=== PATIENT | female | born 1945 | race Caucasian/White ===

== ENCOUNTER 2017-10-20 08:19 | Day surgery (SDC) | payer MEDICARE ==
[2017-10-20] MEDS ORDERED: DEXAMETHASONE SODIUM PHOSPHATE 10 MG/ML VIAL IJ ONE (09:31)
[2017-10-20] MEDS ORDERED: LIDOCAINE HCL/PF 5 ML VIAL IJ ONE (09:32)
[2017-10-20] MEDS ORDERED: IOPAMIDOL 20 ML VIAL IJ ONE (09:32)
--- NOTE | 2017-10-20 09:32 | OR ---
Anesthesia Pre Procedure Eval Date of Service: 10/20/17 Pre Procedure Evaluation: Last Vital Signs Temp 36.3 C L 10/20/17 08:35 Pulse 67 10/20/17 08:35 Resp 16 10/20/17 08:35 BP 163/90 10/20/17 08:35 Pulse Ox 95 10/20/17 08:35 Anesthesia Pre Procedure Evaluation DATE: 10/20/2017 TIME: 9 a.m. INDICATIONS: Low back and left radicular pain PAST MEDICAL HISTORY: Ms. Rosales has a long history of low back and radicular pain. Initially she had low back and right radicular pain 20 years ago which was relieved with an epidural injection at that time. She has had no recurrent right sided radiculopathy or radicular pain however her low back and right radicular pain has been ongoing for over 10 years. She is not a surgical candidate and has failed therapy treatments. She has also had a rhizotomy with no success. She presents this morning after an 11 month onset of increased back and radicular pain which she describes as generally in the center of the back occasionally radiating bilaterally in the back normally radiating to the right hip and anterior thigh to the level of the knee. The procedure and risks were explained. History of GERD: All History of smoking:No History of sleep apnea:No EXAM: Heart S1-S2 regular; lungs clear bilaterally ASSESSMENT OF MEDICAL STATUS: Appropriate candidate for epidural injection PLANNED PROCEDURE: Fluoroscopy guided epidural steroid injection lumbar area. Home Medications: HOME MEDICATIONS Aspirin [Aspirin Enteric Coated] 81 mg PO DAILY 10/19/17 [Last Taken Unknown] Atorvastatin Calcium [Lipitor] 20 mg PO HS 10/19/17 [Last Taken Unknown] Escitalopram Oxalate [Lexapro] 10 mg PO DAILY 10/19/17 [Last Taken Unknown] Estradiol [Estrace] 0.5 mg PO 2XW 10/19/17 [Last Taken Unknown] Fluticasone Propionate [Flonase Allergy Relief] 2 spray NS DAILY 10/19/17 [Last Taken Unknown] Losartan/Hydrochlorothiazide [Losartan-Hctz 100-25 mg Tab] 1 each PO DAILY 10/19 [Last Taken Unknown] Metoprolol Tartrate [Lopressor] 100 mg PO BID MDD TAKES HALF OF 200 MG TAB BID 10/19/17 [Last Taken Unknown] Omeprazole [Prilosec] 20 mg PO DAILY 10/19/17 [Last Taken Unknown] Potassium Chloride [Klor-Con 10] 10 meq PO BIDWM 10/19/17 [Last Taken Unknown] oxyCODONE HCL/ACETAMINOPHEN [Percocet 10-325 mg Tablet] 1 each PO Q6H PRN [Last Taken Unknown]
[2017-10-20 10:13] VITALS: BP 141/58
--- NOTE | 2017-10-20 12:26 | OR ---
Anesthesia Procedure Note - Anesthesia Procedure Note Date of Service: 10/20/17 Narrative: Vital Signs - Last Taken Temp 36.3 C L 10/20/17 09:40 Pulse 64 10/20/17 10:12 Resp 16 10/20/17 10:12 BP 141/58 10/20/17 10:12 Pulse Ox 95 10/20/17 10:12 O2 Oxygen Delivery Method Room Air 10/20/17 12:22 ANESTHESIA PROCEDURE NOTE Date of Procedure: 03/22/2018 Time of procedure: 9:15 AM. Performed by: Khurram Lagos CRNA, FINANCIAL SUPERVISOR, MSN Construction Foreman: Mariah Roa RN. Preprocedure diagnosis: Severe spinal stenosis with left radicular pain. Post procedure diagnosis: Same. Procedure: Epidural Steroid Injection L3 4. Indications: Left radicular pain. Findings: See below. Details of the procedure: After the MRI report and films were reviewed, the patient was interviewed where risks and the procedure were explained. The patient was then brought to 3 and was placed in the prone position. The back was prepped with DuraPrep and draped in a sterile fashion. The lumbar area was identified under fluoroscopy and the L3 4 space was localized with 1% lidocaine solution. Severe scoliosis. The identification of space was quite difficult everything most likely area of injection was identified as the approximate L3 4 level. The epidural space was identified using loss of resistance technique using a #20-gauge Touhy needle. 1 mL of Isovue was injected while the C-arm was positioned in the lateral orientation. The C-arm was then readjusted to an AP view and Isovue 200 1 milliliters was injected demonstrating a spread at the affected area. Dexamethasone 10mg and lidocaine 1% 5 mL was injected, stylette was replaced and the epidural needle removed. A Band-Aid was then applied to the injection site, patient was placed in a left lateral position for 5 minutes then returned to ASU with good relief of pain, from a to/10 to 0/10. EBL: None. Energy: 13.7 Seconds, 3.07 mGy Fluids: N/A. Specimen: N/A. Post procedure condition: The patient tolerated the procedure well. No complications were noted. Thank you for this consultation. Khurram Lagos CRNA, MSN, FINANCIAL SUPERVISOR
== END 2017-10-20 08:20 | disposition home or self-care (01) ==
LOC: AMB 08:19
PROVIDERS: ATTEND Internal Medicine
PROC: 3E0R3BZ Introduction of Anesthetic Agent into Spinal Canal, Percutaneous Approach (ICD-10-PCS; principal; 2017-10-20)
PROC: 3E0R33Z Introduction of Anti-inflammatory into Spinal Canal, Percutaneous Approach (ICD-10-PCS; 2017-10-20)
DX: M48.061 Spinal stenosis, lumbar region without neurogenic claudication

== ENCOUNTER 2018-10-31 08:36 | Observation (INO) ==
[2018-10-31] MEDS ORDERED: NORMAL SALINE 1,000 ML IV ONE (09:04)
[2018-10-31] MEDS ORDERED: ACETAMINOPHEN 500 MG TABLET PO ONE (09:04)
--- NOTE | 2018-10-31 09:09 | ERNOTE ---
Medical Problem HPI - Narrative Date of Service: 10/31/18 - General Chief Complaint: Fever Time Seen by Provider: 10/31/18 08:56 Source: patient, family - Immun/Allergies/Home Medications Immunizations: IMMUNIZATION HX Immunizations Up to Date Yes History of Influenza Vaccine Yes Hx Pneumococcal Vaccination Yes Allergies/Adverse Reactions: Allergies amoxicillin Allergy (Mild, Verified 10/19/18 10:57) Hives NSAIDS (Non-Steroidal Anti-Inflamma Adverse Reaction (Verified 10/19/18 10:57) Home Medications: HOME MEDICATIONS Aspirin [Aspirin Enteric Coated] 81 mg PO DAILY 10/19/17 [Last Taken Unknown] fluticasone 50 mcg/actuation nasal spray,suspension 2 spray AMELIA DAILY #54.6 g 03/22/18 [Last Taken Unknown] omeprazole 20 mg tablet,delayed release 20 mg PO DAILY #90 tab 03/22/18 [Last Taken Unknown] oxycodone-acetaminophen 10 mg-325 mg tablet 1 tab PO Q6H PRN #120 tab 06/16/18 [Last Taken Unknown] atorvastatin 20 mg tablet 20 mg PO HS #90 tab 08/16/18 [Last Taken Unknown] ciprofloxacin 250 mg tablet 250 mg PO BID #20 tab 09/30/18 [Last Taken Unknown] escitalopram 10 mg tablet 10 mg PO DAILY #90 tab 10/06/18 [Last Taken Unknown] metoprolol succinate ER 100 mg tablet,extended release 24 hr 100 mg PO BID #180 tab 10/27/18 [Last Taken Unknown] - History of Present History Narrative: This is a 72-year-old female who comes to the emergency department with a fever to 102 this morning. The patient has a recent diagnosis of what sounds like bladder cancer with ureteral obstruction and hydro-bilaterally. She had nephrostomy tubes placed a little over a week ago. I actually saw her a few days ago when she had a large pulmonary embolism for which she was actually transferred to [facility]. She has been doing okay and went home. Thursday night she started feeling poorly. She says that the nephrostomy tube at one side stopped draining. She says since then she has been feeling crappy. With the fever this morning she called her doctors at [place] and they told her to come to the ER. Some nausea but no vomiting. No diarrhea. No change in the urine. No coughing sore throat runny nose. No stiff neck. No significant new abdominal pain. No other complaints, she just has generalized malaise and achiness. She did not take Tylenol as she did not know how much she can take as she is also taking Percocet. She cannot take NSAIDs Review of Systems - Review of Systems Constitutional: Present: recent illness, fever, chills, fatigue, malaise EYE: Present: no symptoms reported ENT: Present: no symptoms reported Respiratory: Present: no symptoms reported Cardiology: Present: no symptoms reported Gastrointestinal/Abdominal: Present: nausea. Absent: vomiting, diarrhea Genitourinary: Present: See HPI Musculoskeletal: Present: other Skin: Present: no symptoms reported Neurological: Present: no symptoms reported - Achy pain all over Endocrine: Present: no symptoms reported Hematologic/Lymphatic: Present: no symptoms reported Psych: Present: no symptoms reported All Other Systems: All systems neg except as marked Medical History (Last Reviewed 10/19/18 @ 11:00 by Candace Méndez) Scoliosis (Chronic) Onset Date: ~04/27/17 Lumbar spondylolysis (Chronic) Onset Date: ~04/27/17 [facility] Hypertension (Chronic) Onset Date: Unknown well controlled Hyperlipemia (Chronic) Onset Date: Unknown DDD (degenerative disc disease), lumbar (Chronic) Onset Date: ~04/27/17 [facility]- facet arthropathy CHF (congestive heart failure) (Chronic) Onset Date: Unknown compensated Cardiomyopathy (Resolved) Onset Date: Unknown CAD (coronary artery disease) (Chronic) Onset Date: Unknown Stable angina (Chronic) Onset Date: Unknown Bladder cancer Onset Date: ~10/04/18 bladder tumor 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 Mckeon Surgical History: Surgical History (Last Reviewed 10/19/18 @ 11:00 by Candace Méndez) Cataract Onset Date: ~05/2013 H/O angioplasty Onset Date: ~04/1999 CFX 1999, [place] EF60% History of cholecystectomy Onset Date: ~04/2012 History of left hip replacement Onset Date: ~01/2009 S/P coronary artery stent placement Onset Date: Unknown Status post epidural steroid injection Onset Date: Unknown rhizotomy Onset Date: ~06/2015 of lumbar facet joint Family History: Family History (Last Reviewed 10/19/18 @ 11:00 by Candace Méndez) Father Hypertension Myocardial infarction Mother Myocardial infarction Social History: Preferred Language Chinese Smoking Status Former smoker Have you smoked in the past 12 Yes months Smoking packs per day 0.5 Alcohol Use none Drug Use none (Last Updated 10/19/18 @ 11:25 by Jin Espinoza MD) No Social History Section defined Physical Exam - Physical Exam General Appearance: Present: wd/wn, alert, no apparent distress Head Exam: Present: normal inspection, no evidence of injury Eye Exam: Normal inspection: bilateral Ears, Nose, Throat: Present: normal ENT inspection, normal pharynx Neck: Present: normal inspection, nontender Respiratory: Present: no respiratory distress, normal breath sounds, chest nontender, lungs clear Cardiovascular/Chest: Present: regular rate, rhythm, no murmur Gastrointestinal/Abdominal: Present: normal bowel sounds, nontender, nondistended, soft Back Exam: Present: other - Patient has sites of bilateral nephrostomy tubes. There is no surrounding cellulitis or erythema. Patient has no significant CVA tenderness. No rashes are noted on the back. No vertebral tenderness Extremity Exam: Present: normal inspection, non-tender, normal range of motion Neurological Exam: Present: alert, oriented, normal mood/affect, no motor/sensory deficits Skin Exam: Present: normal color, warm/dry Lymphatic Exam: Present: no adenopathy Progress - Results and Orders Patient's Lab Results:: I have reviewed the patient's lab results. - Vital Signs Patient's Vital Signs:: I have reviewed the patient's vital signs. Vital Signs: Vital Signs 10/31/18 08:57 Temperature 36.8 C Pulse Rate 92 Respiratory Rate 18 Blood Pressure 162/73 H O2 Sat by Pulse Oximetry 92 L - X-Ray X-Ray #1 X-Ray: chest Interpretation: Interp. by me X-ray Comments: No acute disease cardiopulmonary was - Progress/Reassessment Chief Complaint: Fever Progress:: Improved Progress Note-Subjective: 10/31/18 11:12 Patient feels better now after having the Tylenol. I guess the first urine came from the urostomy nephrostomy tube. The other side is actually not draining so she is having passage of urine from the urethra. Were going to obtain a sample from there. She had a fever and she has this manipulation of her kidney so I have to assume that she has kidney infection. Were going to admit her to the hospital. Give IV Rocephin. We need to get her out Thursday to get up to her appointment. I will speak with Dr. Barbosa.? Adjuvant Departure Clinical Impression: Urinary tract infection - Departure Disposition: Still a patient Condition: Fair Referrals: Jin Espinoza MD [Primary Care Provider] -
[2018-10-31 09:32] LABS: Hematocrit 36.1 % (37.0-47.0); Hemoglobin 10.9 gm/dL (12.5-16.0); Mean Cell Volume 84.1 fl (78-100); Mean Corpuscular Hemoglobin 25.4 pg (27-31); Mean Corpuscular Hgb Conc 30.2 g/dl (32-36); Mean Platelet Volume 9.4 fl (8-12.5); Neutrophil % 85.6 % (42-75.0); Platelet Count 317 K/mm3 (150-450); Red Blood Count 4.29 M/mm3 (4.2-5.4); Red Cell Distribution Width 15.4 % (11.5-14.0)
[2018-10-31 09:46] LABS: Anion Gap 15.3 mmol/L (6.8-13.8); BUN/Creatinine Ratio 14.1 (9.0-21.6); Bilirubin, Total 0.7 mg/dL (0.0-1.1); Ca. Corrected For Albumin 9.7 mg/dL (8.4-10.2); Calcium * 9.2 mg/dL (7.9-10.9); Carbon Dioxide 27.2 mmol/L (24-32.6); Potassium 3.5 mmol/L (3.4-4.6); Total Protein 7.3 gm/dL (6.2-8.2)
[2018-10-31 09:57] LABS: Urine Bilirubin Negative (NEGATIVE); Urine Blood 50 /ul (NEGATIVE); Urine Ketone Negative (NEGATIVE); Urine Nitrite Negative (NEGATIVE); Urine Protein 100 mg/dL (NEGATIVE); Urine Urobilinogen Normal (NORMAL)
[2018-10-31 10:03] LABS: Urine Appearance Slightly Cloudy (CLEAR); Urine Color Yellow; Urine WBC 0-5 /hpf (0-5)
[2018-10-31 10:04] LABS: Urine Bacteria TRACE; Urine Mucus Few - 1+
[2018-10-31 10:05] LABS: Urine Yeast TRACE
[2018-10-31] MEDS ORDERED: FLUCONAZOLE 100 MG TABLET PO ONE (11:10)
[2018-10-31] MEDS ORDERED: cefTRIAXone SODIUM 1,000 MG/100 ML BAG IV ONE (11:10)
[2018-10-31 11:32] LABS: Urine Bilirubin Negative (NEGATIVE); Urine Blood 250 /ul (NEGATIVE); Urine Ketone Negative (NEGATIVE); Urine Nitrite Negative (NEGATIVE); Urine Protein 100 mg/dL (NEGATIVE); Urine Urobilinogen Normal (NORMAL)
[2018-10-31 11:41] LABS: Urine Appearance Cloudy (CLEAR); Urine Bacteria 2+; Urine Color Yellow; Urine RBC >50 /hpf (0-5); Urine WBC >50 /hpf (0-5); Urine Yeast Few - 1+
[2018-10-31] MEDS ORDERED: ENOXAPARIN SODIUM 40 MG/0.4 ML SYRG SC SCH (13:15)
--- NOTE | 2018-10-31 13:42 | HP ---
Chief Complaint - Chief Complaint Date of Service: 10/31/18 Time of Service: 13:00 Chief Complaint: Fever, left flank pain, malodorous urine, weakness. History of Present Illness: Stella Rosales is a 72-year-old female who presented to the emergency room with fever chills and weakness. She was recently diagnosed with bladder cancer and has [address] The right ureteral stent is draining urine into the collection bag fine. The left ureteral stent is occluded and the urine from the left kidney is working around the stent and coming out through the urethra. The bladder cancer has caused a hydroureter or hydronephrosis bilaterally. Because the left stent is not functioning the urine has become stagnant and infected and she has developed a left pyelonephritis. She had pain in the left flank this morning earlier but that is gone now. She is taking Percocet 4 times a day for pain management. In the emergency room she was given IV fluids, IV Rocephin 1 g IV piggyback, and she is now afebrile and feeling much better. She states she is actually hungry which is the first time in quite a while that she wanted to eat. Also she recently had a saddle pulmonary embolus that was life-threatening. The only anticoagulant medicine I'm seeing however is aspirin. Because of her bladder tumor and recent pulmonary emboli probably she is at high risk for DVT. Medical History (Last Reviewed 10/31/18 @ 13:34 by Lisa Ram RN) Scoliosis (Chronic) Onset Date: ~04/27/17 Lumbar spondylolysis (Chronic) Onset Date: ~04/27/17 [facility] Hypertension (Chronic) Onset Date: Unknown well controlled Hyperlipemia (Chronic) Onset Date: Unknown DDD (degenerative disc disease), lumbar (Chronic) Onset Date: ~04/27/17 [facility]- facet arthropathy CHF (congestive heart failure) (Chronic) Onset Date: Unknown compensated Cardiomyopathy (Resolved) Onset Date: Unknown CAD (coronary artery disease) (Chronic) Onset Date: Unknown Stable angina (Chronic) Onset Date: Unknown Bladder cancer Onset Date: ~10/04/18 bladder tumor 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 Mckeon Surgical History: Surgical History (Last Reviewed 10/31/18 @ 13:34 by Lisa Ram RN) Cataract Onset Date: ~05/2013 H/O angioplasty Onset Date: ~04/1999 CFX 1998, [place] EF60% History of cholecystectomy Onset Date: ~04/2012 History of left hip replacement Onset Date: ~01/2009 S/P coronary artery stent placement Onset Date: Unknown Status post epidural steroid injection Onset Date: Unknown rhizotomy Onset Date: ~06/2015 of lumbar facet joint Family History: Family History (Last Reviewed 10/31/18 @ 13:34 by Lisa Ram RN) Father Hypertension Myocardial infarction Mother Myocardial infarction Social History: Preferred Language Cymro Smoking Status Former smoker Have you smoked in the past 12 Yes months Smoking packs per day 0.5 Alcohol Use none Drug Use none (Last Updated 10/19/18 @ 11:25 by Jin Espinoza MD) No Social History Section defined Review Of Systems (GEN) - Review of Systems Generalized/Overall Review: Present: Weakness, Chills, Fever, Malaise EENTM: Present: No Symptoms Reported Respiratory: Present: No Symptoms Reported Cardiac: Present: No Symptoms Reported Abdominal: Present: No Symptoms Reported Genitourinary: Present: Dribbling, Incontinent, Other - See discussion in the HPI Musculoskeletal: Present: No Symptoms Reported Neurological: Present: No Symptoms Reported Skin: Present: No Symptoms Reported Endocrine: Present: No Symptoms Reported Misc: All systems neg except as marked Immunizations: IMMUNIZATION HX Immunizations Up to Date Yes History of Influenza Vaccine Yes Hx Pneumococcal Vaccination Yes Allergies/Adverse Reactions: Allergies Allergy/AdvReac Type Severity Reaction Status Date / Time amoxicillin Allergy Mild Hives Verified 10/19/18 10:57 NSAIDS (Non-Steroidal AdvReac Verified 10/19/18 10:57 Anti-Inflamma Home Medications: HOME MEDICATIONS Aspirin [Aspirin Enteric Coated] 81 mg PO DAILY 10/19/17 [Last Taken Unknown] fluticasone 50 mcg/actuation nasal spray,suspension 2 spray AMELIA DAILY #54.6 g 03/22/18 [Last Taken Unknown] omeprazole 20 mg tablet,delayed release 20 mg PO DAILY #90 tab 03/22/18 [Last Taken Unknown] oxycodone-acetaminophen 10 mg-325 mg tablet 1 tab PO Q6H PRN #120 tab 06/16/18 [Last Taken Unknown] atorvastatin 20 mg tablet 20 mg PO HS #90 tab 08/16/18 [Last Taken Unknown] ciprofloxacin 250 mg tablet 250 mg PO BID #20 tab 09/30/18 [Last Taken Unknown] escitalopram 10 mg tablet 10 mg PO DAILY #90 tab 10/06/18 [Last Taken Unknown] metoprolol succinate ER 100 mg tablet,extended release 24 hr 100 mg PO BID #180 tab 10/27/18 [Last Taken Unknown] Exam - Exam Vital Signs: Vital Signs - Last Taken Temp 36.8 C 10/31/18 12:15 Pulse 98 10/31/18 12:15 Resp 16 10/31/18 12:15 BP 148/76 10/31/18 12:15 Pulse Ox 94 10/31/18 12:15 Constitutional: Present: Alert, Oriented x3, Cooperative, Well developed, Well nourished, No distress ENT Exam: Present: normal ENT inspection, hearing grossly normal, pharynx normal, TMs normal Eye Exam: bilateral eye: normal inspection, PERRL, EOMI Neck: Present: non-tender, full range of motion Back Exam: Present: normal inspection, no CVA tenderness, no vertebral tenderness Breasts: Present: Exam deferred Respiratory: Present: chest non-tender, lungs clear, normal breath sounds, no respiratory distress, no accessory muscle use Cardiovascular/Chest: Present: no gallop - Having frequent trigeminal PVCs., tachycardia Peripheral Pulses: carotid (R): 2+, carotid (L): 2+, radial (R): 2+, radial (L): 2+ Abdomen: Present: Normal bowel sounds, soft, nontender, nondistended, no rebound tenderness, no hepatospenomegaly, no masses, suprapubic tenderness, other - Positive Jose Manuel's sign on the left /Rectal: Present: Exam deferred Extremity: Present: normal range of motion Skin Exam: Present: normal color, warm/dry, no cyanosis Lymphatic: Present: no adenopathy Neurologic: Present: vibration engineer II-XII nml as tested, no motor/sensory deficits, alert, normal mood/affect, oriented x 3 Appearance: Present: appropriate appearance, appropriate insight, neat Eye contact: Present: cooperative, good eye contact, normal speech Thoughts: Present: normal thought pattern, no apparent hallucination Diagnostic Studies: Abnormal Lab Results 10/31/18 10/31/18 10/31/18 Range/Units 09:28 09:28 09:53 WBC 14.0 H (4.0-10.5) K/mm3 Hgb 10.9 L (12.5-16.0) gm/dL Hct 36.1 L (37.0-47.0) % MCH 25.4 L (27-31) pg MCHC 30.2 L (32-36) g/dl RDW 15.4 H (11.5-14.0) % Immature Gran % (Auto) 0.50 H (0.001-0.429) % Immature Gran # (Auto) 0.07 H (0.000-0.0310) K/mm3 Neutrophils % 85.6 H (42-75.0) % Lymphocytes % 6.0 L (20-51) % Neutrophils # 12.0 H (1.3-6.0) K/mm3 Lymphocytes # 0.84 L (1.5-3.5) k/mm3 Monocytes # 1.1 H (0.0-1.0) k/mm3 Anion Gap 15.3 H (6.8-13.8) mmol/L Est GFR (Non-Af Amer) 58 L (60-130) mL/min Random Glucose 124 H (70-110) mg/dL Albumin 3.0 L (3.4-5.0) gm/dl Urine pH (5.0-7.0) pH Urine Protein 100 H (NEGATIVE) mg/dL Urine Blood 50 H (NEGATIVE) /ul Prot Sulfosalicylic Acd 3+ H (0) mg/dL Ur Leukocyte Esterase (NEGATIVE) /ul Urine RBC 10-25 H (0-5) /hpf Urine WBC (0-5) /hpf Urine Bacteria (NONE) Urine Mucus Few - 1+ H (NONE) Urine Yeast (NONE) 10/31/18 Range/Units 11:10 WBC (4.0-10.5) K/mm3 Hgb (12.5-16.0) gm/dL Hct (37.0-47.0) % MCH (27-31) pg MCHC (32-36) g/dl RDW (11.5-14.0) % Immature Gran % (Auto) (0.001-0.429) % Immature Gran # (Auto) (0.000-0.0310) K/mm3 Neutrophils % (42-75.0) % Lymphocytes % (20-51) % Neutrophils # (1.3-6.0) K/mm3 Lymphocytes # (1.5-3.5) k/mm3 Monocytes # (0.0-1.0) k/mm3 Anion Gap (6.8-13.8) mmol/L Est GFR (Non-Af Amer) (60-130) mL/min Random Glucose (70-110) mg/dL Albumin (3.4-5.0) gm/dl Urine pH 8.0 H (5.0-7.0) pH Urine Protein 100 H (NEGATIVE) mg/dL Urine Blood 250 H (NEGATIVE) /ul Prot Sulfosalicylic Acd 3+ H (0) mg/dL Ur Leukocyte Esterase 500 H (NEGATIVE) /ul Urine RBC >50 H (0-5) /hpf Urine WBC >50 H (0-5) /hpf Urine Bacteria 2+ H (NONE) Urine Mucus (NONE) Urine Yeast Few - 1+ H (NONE) Laboratory Results WBC 14.0 K/mm3 (4.0-10.5) H 10/31/18 09:28 RBC 4.29 M/mm3 (4.2-5.4) 10/31/18 09:28 Hgb 10.9 gm/dL (12.5-16.0) L 10/31/18 09:28 Hct 36.1 % (37.0-47.0) L 10/31/18 09:28 MCV 84.1 fl (78-100) 10/31/18 09:28 MCH 25.4 pg (27-31) L 10/31/18 09:28 MCHC 30.2 g/dl (32-36) L 10/31/18 09:28 RDW 15.4 % (11.5-14.0) H 10/31/18 09:28 Plt Count 317 K/mm3 (150-450) 10/31/18 09:28 MPV 9.4 fl (8-12.5) 10/31/18 09:28 Immature Gran % (Auto) 0.50 % (0.001-0.429) H 10/31/18 09:28 Immature Gran # (Auto) 0.07 K/mm3 (0.000-0.0310) H 10/31/18 09:28 Neutrophils % 85.6 % (42-75.0) H 10/31/18 09:28 Lymphocytes % 6.0 % (20-51) L 10/31/18 09:28 Monocytes % 7.5 % (0.0-9) 10/31/18 09:28 Eosinophils % 0.1 % (0.0-3.0) 10/31/18 09:28 Basophils % 0.3 % (0.0-1.0) 10/31/18 09:28 Nucleated RBC % 0.0 k/mm3 (0-1) 10/31/18 09:28 Neutrophils # 12.0 K/mm3 (1.3-6.0) H 10/31/18 09:28 Lymphocytes # 0.84 k/mm3 (1.5-3.5) L 10/31/18 09:28 Monocytes # 1.1 k/mm3 (0.0-1.0) H 10/31/18 09:28 Eosinophils # 0.0 k/mm3 (0.0-0.7) 10/31/18 09:28 Absolute Basophils 0.0 k/mm3 (0.0-0.1) 10/31/18 09:28 Sodium 137 mmol/L (132-142) 10/31/18 09:28 Plasma Sodium 137 mmol/L (130-142) 10/31/18 09:28 Potassium 3.5 mmol/L (3.4-4.6) 10/31/18 09:28 Chloride 98 mmol/L (97-106) 10/31/18 09:28 Carbon Dioxide 27.2 mmol/L (24-32.6) 10/31/18 09:28 Anion Gap 15.3 mmol/L (6.8-13.8) H 10/31/18 09:28 BUN 14 mg/dL (3-23) D 10/31/18 09:28 Creatinine 0.99 mg/dL (0.4-1.4) 10/31/18 09:28 Est GFR (Non-Af Amer) 58 mL/min (60-130) L 10/31/18 09:28 BUN/Creatinine Ratio 14.1 (9.0-21.6) 10/31/18 09:28 Random Glucose 124 mg/dL (70-110) H 10/31/18 09:28 Lactic Acid, Venous 1.3 mmol/L (0.4-2.0) 10/31/18 09:28 Calcium 9.2 mg/dL (7.9-10.9) 10/31/18 09:28 Calcium Adj for Albumin 9.7 mg/dL (8.4-10.2) 10/31/18 09:28 Total Bilirubin 0.7 mg/dL (0.0-1.1) 10/31/18 09:28 AST 31 U/L (0-48) 10/31/18 09:28 ALT 25 U/L (19-67) 10/31/18 09:28 Alkaline Phosphatase 142 U/L (50-170) 10/31/18 09:28 Total Protein 7.3 gm/dL (6.2-8.2) 10/31/18 09:28 Albumin 3.0 gm/dl (3.4-5.0) L 10/31/18 09:28 Urine Color Yellow 10/31/18 11:10 Urine Appearance Cloudy (CLEAR) 10/31/18 11:10 Urine pH 8.0 pH (5.0-7.0) H 10/31/18 11:10 Ur Specific [place] 1.020 SP.GR. (1.005-1.010) 10/31/18 11:10 Urine Protein 100 mg/dL (NEGATIVE) H 10/31/18 11:10 Urine Glucose (UA) Negative mg/dL (NEGATIVE) 10/31/18 11:10 Urine Ketones Negative mg/dL (NEGATIVE) 10/31/18 11:10 Urine Blood 250 /ul (NEGATIVE) H 10/31/18 11:10 Urine Nitrate Negative (NEGATIVE) 10/31/18 11:10 Urine Bilirubin Negative mg/dl (NEGATIVE) 10/31/18 11:10 Prot Sulfosalicylic Acd 3+ mg/dL (0) H 10/31/18 11:10 Urine Urobilinogen Normal EU/dl (NORMAL) 10/31/18 11:10 Ur Leukocyte Esterase 500 /ul (NEGATIVE) H 10/31/18 11:10 Urine RBC >50 /hpf (0-5) H 10/31/18 11:10 Urine WBC >50 /hpf (0-5) H 10/31/18 11:10 Ur Epithelial Cells 0-5 /hpf (0-5) 10/31/18 11:10 Urine Bacteria 2+ (NONE) H 10/31/18 11:10 Urine Mucus Few - 1+ (NONE) H 10/31/18 09:53 Urine Yeast Few - 1+ (NONE) H 10/31/18 11:10 Urine Culture Comments Culture to follow 10/31/18 11:10 Influenza Type A Ag Negative (NEGATIVE) 10/31/18 10:47 Influenza Type B Ag Negative (NEGATIVE) 10/31/18 10:47 Assessment/Plan - Narrative Narrative: Stella is admitted to observation status and will be continued with IV fluids and IV antibiotics as it seems to have made her feel quite a lot better already. I will continue her usual home medications. We will monitor her vital signs especially her temperature. - Assessment/Plan (1) Ureteral stent occlusion Problem: Acute Qualifiers: Encounter type: initial encounter Qualified Code(s): T83.192A - Other mechanical complication of indwelling ureteral stent, initial encounter (2) Bladder CA in situ Problem: Acute (3) Hydronephrosis due to obstructive malignant bladder cancer Problem: Acute (4) Urinary tract infection Problem: Acute Qualifiers: Urinary tract infection type: acute pyelonephritis Qualified Code(s): N10 - Acute pyelonephritis (5) Chronic pain syndrome Problem: Chronic
[2018-10-31] MEDS: oxyCODONE HCL/ACETAMINOPHEN 1 TAB TABLET PO PRN ×2 (16:13→22:18)
[2018-10-31] MEDS: NORMAL SALINE 1,000 ML IV PRN (18:54)
[2018-10-31] MEDS ORDERED: ROSUVASTATIN CALCIUM 10 MG TABLET PO SCH (21:00)
[2018-10-31] MEDS: METOPROLOL SUCCINATE 100 MG TABLET.SA PO SCH (21:26)
[2018-10-31] MEDS ORDERED: diphenhydrAMINE HCL 25 MG CAPSULE PO PRN (22:08)
[2018-10-31] MEDS ORDERED: diphenhydrAMINE HCL 25 MG CAPSULE ONE (22:15)
[2018-10-31] MEDS ORDERED: ESCITALOPRAM OXALATE 10 MG TAB PO SCH (22:15)
[2018-10-31] MEDS ORDERED: APIXABAN 5 MG TABLET PO ONE (22:15)
[2018-10-31] MEDS: APIXABAN 5 MG TABLET PO SCH (22:19)
[2018-11-01] MEDS ORDERED: ACETAMINOPHEN 325 MG TABLET PO PRN (00:17)
[2018-11-01] MEDS: NORMAL SALINE 1,000 ML IV PRN (05:13)
[2018-11-01] MEDS: oxyCODONE HCL/ACETAMINOPHEN 1 TAB TABLET PO PRN ×2 (06:55→13:18)
[2018-11-01] MEDS ORDERED: PANTOPRAZOLE SODIUM 20 MG TABLET.DR PO SCH (07:00)
[2018-11-01] MEDS ORDERED: FLUTICASONE PROPIONATE 120 SPRAY INHALER NS SCH (09:00)
[2018-11-01] MEDS ORDERED: ASPIRIN 81 MG TABLET.DR PO SCH (09:00)
[2018-11-01] MEDS: METOPROLOL SUCCINATE 100 MG TABLET.SA PO SCH (09:11)
[2018-11-01] MEDS: APIXABAN 5 MG TABLET PO SCH (09:12)
--- NOTE | 2018-11-01 11:05 | DS ---
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 She was started on IV fluids and IV antibiotics and responded very well to that. In fact by the time she was admitted and I saw her she was already having any fever or chills and she has not had any through the night. She is feeling much better this morning and feels like she can go home to get back to her usual routine. She has low back pain chronically and takes Percocet for that. She thinks that some of her shaking might have been from not getting her Percocet in a timely fashion or at least enough of it. At any rate she is very comfortable this morning and her and requests to be discharged to home. Her disposition is improved and her prognosis is good. Procedures Performed: none Results and Findings: Pending Mircobiology Results 10/31/18 09:34 Blood Blood Culture - Preliminary NO GROWTH 24 HOURS 10/31/18 09:28 Blood Blood Culture - Preliminary NO GROWTH 24 HOURS 10/31/18 11:10 Urine,Clean Catch Urine Culture - Preliminary No Pathogens Isolated 10/31/18 10:06 Nephrostomy Tube Urine Culture - Preliminary Gram Negative Bacilli Lab Pending Results 10/31/18 09:28: WBC 14.0 H, RBC 4.29, Hgb 10.9 L, Hct 36.1 L, MCV 84.1, MCH 25.4 L, MCHC 30.2 L, RDW 15.4 H, Plt Count 317, MPV 9.4, Immature Gran % (Auto) 0.50 H, Immature Gran # (Auto) 0.07 H, Neutrophils % 85.6 H, Lymphocytes % 6.0 L, Monocytes % 7.5, Eosinophils % 0.1, Basophils % 0.3, Nucleated RBC % 0.0, Neutrophils # 12.0 H, Lymphocytes # 0.84 L, Monocytes # 1.1 H, Eosinophils # 0.0, Absolute Basophils 0.0 10/31/18 09:28: Sodium 137, Plasma Sodium 137, Potassium 3.5, Chloride 98, Carbon Dioxide 27.2, Anion Gap 15.3 H, BUN 14 D, Creatinine 0.99, Est GFR (Non- Af Amer) 58 L, BUN/Creatinine Ratio 14.1, Random Glucose 124 H, Calcium 9.2, Calcium Adj for Albumin 9.7, Total Bilirubin 0.7, AST 31, ALT 25, Alkaline Phosphatase 142, Total Protein 7.3, Albumin 3.0 L 10/31/18 09:28: Lactic Acid, Venous 1.3 10/31/18 09:53: Urine Color Yellow, Urine Appearance Slightly cloudy, Urine pH 7.0, Ur Specific [place] 1.020, Urine Protein 100 H, Urine Glucose (UA) Negative, Urine Ketones Negative, Urine Blood 50 H, Urine Nitrate Negative, Urine Bilirubin Negative, Prot Sulfosalicylic Acd 3+ H, Urine Urobilinogen Normal, Ur Leukocyte Esterase Negative, Urine RBC 10-25 H, Urine WBC 0-5, Ur Epithelial Cells 0-5, Urine Bacteria Trace, Urine Mucus Few - 1+ H, Urine Yeast Trace, Urine Culture Comments Culture to follow 10/31/18 10:47: Influenza Type A Ag Negative, Influenza Type B Ag Negative 10/31/18 11:10: Urine Color Yellow, Urine Appearance Cloudy, Urine pH 8.0 H, Ur Specific [place] 1.020, Urine Protein 100 H, Urine Glucose (UA) Negative, Urine Ketones Negative, Urine Blood 250 H, Urine Nitrate Negative, Urine Bilirubin Negative, Prot Sulfosalicylic Acd 3+ H, Urine Urobilinogen Normal, Ur Leukocyte Esterase 500 H, Urine RBC >50 H, Urine WBC >50 H, Ur Epithelial Cells 0-5, Urine Bacteria 2+ H, Urine Yeast Few - 1+ H, Urine Culture Comments Culture to follow Discharge Location: Home Disposition: Home Health Service Home Health Agency: [facility] Health Condition: Fair Face to Face Encounter completed per CMS Guidelines: No Discharge Activity: Activity as tolerated Discharge Diet: General/regular food Referrals: Jin Espinoza MD [Primary Care Provider] - Additional Patient Instructions (free text): 1. Follow-up with urologist as soon as possible regarding the occluded ureteral stent 2. Follow-up with primary care physician within the next 2 weeks Prescriptions (Any new or edited meds): Cefuroxime Axetil [Ceftin] 250 mg PO Q12H #20 tab Complete Home Medications List: Complete Home Medication List: Aspirin [Aspirin Enteric Coated] 81 mg PO DAILY 10/19/17 fluticasone 50 mcg/actuation nasal spray,suspension 2 spray AMELIA DAILY #54.6 g 03/22/18 omeprazole 20 mg tablet,delayed release 20 mg PO DAILY #90 tab 03/22/18 oxycodone-acetaminophen 10 mg-325 mg tablet 1 tab PO Q6H PRN #120 tab 06/16/18 atorvastatin 20 mg tablet 20 mg PO HS #90 tab 08/16/18 escitalopram 10 mg tablet 10 mg PO DAILY #90 tab 10/06/18 metoprolol succinate ER 100 mg tablet,extended release 24 hr 100 mg PO BID #180 tab 10/27/18 Apixaban [Eliquis] 5 mg PO BID 10/31/18 Cefuroxime Axetil [Ceftin] 250 mg PO Q12H #20 tab 11/01/18
[2018-11-01] MEDS ORDERED: FLUCONAZOLE 100 MG TABLET PO ONE (12:00)
[2018-11-01 15:08] VITALS: BP 148/74
== END 2018-11-01 14:55 | disposition home health service (06) ==
LOC: ER 08:36 → MS 08:36
PROVIDERS: ADMIT Family Medicine; ATTEND Family Medicine
CPT/HCPCS: 36415; 71020; 71046; 80053; 81001; 83605; 85025; 87040; 87077; 87086; 87186; 87400; 87449; 96360; 96361; 99285; G0378